=== PATIENT | female | born 1970 | race Caucasian/White ===

== ENCOUNTER 2018-03-08 15:02 | Emergency (ER) | payer MEDICAID ==
[~2018-03-08] VITALS: Ht 152.4 cm; Wt 71.7 kg
[2018-03-08 15:16] VITALS: Ht 152.4 cm; Wt 71.7 kg
[2018-03-08 16:52] VITALS: BP 155/69
== END 2018-03-08 16:52 | disposition home or self-care (01) ==
LOC: ED 15:02
DX: S92.531A Displaced fracture of distal phalanx of right lesser toe(s), initial encounter for closed fracture (principal); W22.8XXA Striking against or struck by other objects, initial encounter; Y93.01 Activity, walking, marching and hiking; Y92.89 Other specified places as the place of occurrence of the external cause; Y99.8 Other external cause status
CPT/HCPCS: Q0092